=== PATIENT | male | born 1950 | race Caucasian/White ===

== ENCOUNTER 2017-12-05 07:08 | Inpatient (IN) ==
[2017-12-05] MEDS ORDERED: tiZANidine 4 MG TABLET PO PRN (15:18)
[2017-12-05] MEDS ORDERED: NITROGLYCERIN SL 0.4 MG TABLET SL PRN (15:18)
[2017-12-05] MEDS ORDERED: DEXTROSE 50% 25 GM/50 ML VIAL IV PRN (15:21)
[2017-12-05] MEDS ORDERED: GLUCAGON 1 MG VIAL IM PRN (15:21)
[2017-12-05] MEDS ORDERED: SODIUM CHLORIDE 0.9% 1,000 ML IV SCH (15:30)
[2017-12-05 15:53] LABS: Basophils # 0.1 10*3/uL (0.0-0.2); Basophils % 0.9 % (0.0-0.8); Eosinophils # 0.3 10*3/uL (0.0-0.87); Eosinophils % 2.6 % (0.00-10.9); Hematocrit 43.2 VOL% (42.0-52.0); Hemoglobin 13.6 GM/DL (14.0-18.0); Immature Granulocytes % 0.3 %; Immature Granulocytes Absolute 0.03 #; Lymphocytes # 3.1 10*3/uL (1.4-4.0); Lymphocytes % 32.5 % (21.2-54.2); Mean Corpuscular HGB Conc 31.5 GM/DL (32-36); Mean Corpuscular Hemoglobin 27 PG (27-34); Mean Corpuscular Volume 86.9 FL (87-102); Mean Platelet Volume 11.2 FL (9.6-12.0); Monocytes # 0.9 10*3/uL (0.11-0.8); Monocytes % 9.2 % (1.7-12.7); Neutrophils # 5.2 10*3/uL (1.4-7.4); Neutrophils % 54.5 % (38.7-73.9); Platelet Count 216 T/CUMM (130-400); Red Blood Count 4.97 MC/CUMM (3.8-5.5); White Blood Count 9.5 T/CUMM (4-12)
[2017-12-05] MEDS: CHLORHEXIDINE 4% SOLN 118 ML BOTTLE TOP SCH ×2 (16:22→21:50)
[2017-12-05] MEDS ORDERED: DIAZEPAM 5 MG TABLET PO ONE (16:25)
[2017-12-05 16:26] LABS: Albumin 3.5 G/DL (3.4-5.0); Bilirubin,Total 0.4 MG/DL (0.2-1.0); Calcium 8.6 MG/DL (8.5-10.1); Osmolality,Calculated 282.3 MOS/KG (273-304); Potassium 3.9 MMOL/L (3.5-5.1)
[2017-12-05] MEDS ORDERED: PANTOPRAZOLE 40 MG VIAL IV ONE (16:27)
[2017-12-05 18:33] LABS: ABG Base Excess -0.6 MMOL/L (-2.5-2.5); ABG HCO3 23.9 MMOL/L (20-26); ABG Oxygen Saturation 97.5 % (95-100); ABG PCO2 40.1 MM HG (35-48); ABG PH 7.389 (7.35-7.45); ABG PO2 90.9 MM HG (80-95); ABG TCO2 21.1 MMOL/L (23-27)
[2017-12-05] MEDS ORDERED: cloNIDine 0.1 MG TABLET PO SCH (21:00)
[2017-12-05] MEDS ORDERED: ATORVASTATIN 40 MG TABLET PO SCH (21:00)
[2017-12-05] MEDS ORDERED: NEBIVOLOL 5 MG TABLET PO SCH (21:00)
[2017-12-05] MEDS ORDERED: GABAPENTIN 100 MG CAPSULE PO SCH (21:00)
[2017-12-05] MEDS: CILOSTAZOL 50 MG TABLET PO SCH (21:51)
[2017-12-05] MEDS: CHLORHEXIDINE 0.12% ORAL RINSE 60 ML BOTTLE SWISH/SPIT SCH (21:51)
[2017-12-06] MEDS ORDERED: CEFUROXIME INJ 1,500 MG in SYRINGE 1 EACH IV ONE ×2 (05:00→06:00)
[2017-12-06] MEDS ORDERED: PAPAVERINE 60 MG/2 ML VIAL ONE (05:22)
[2017-12-06] MEDS ORDERED: VANCOMYCIN 1,000 MG VIAL ONE (05:23)
[2017-12-06] MEDS ORDERED: SUFentanil 250 MCG/5 ML AMP ONE (05:38)
[2017-12-06] MEDS ORDERED: PHENYLEPHRINE DRIP 20 MG/250 ML PREMIX IV ONE ×2 (05:38→11:08)
[2017-12-06] MEDS ORDERED: CALCIUM CHLORIDE 1,000 MG/10 ML VIAL IV ONE (05:38)
[2017-12-06] MEDS ORDERED: HEPARIN/NACL 0.9% 2 UNITS/ML 1,000 ML IV ONE (05:38)
[2017-12-06] MEDS ORDERED: ePHEDrine 50 MG/ML AMP ONE (05:39)
[2017-12-06] MEDS ORDERED: VECURONIUM 10 MG VIAL IV ONE ×2 (05:39→12:24)
[2017-12-06] MEDS ORDERED: MIDAZOLAM 10 MG/2 ML VIAL ONE (05:39)
[2017-12-06] MEDS ORDERED: NITROGLYCERIN DRIP 50 MG/250 ML BOTTLE IV ONE (05:39)
[2017-12-06] MEDS ORDERED: TRANEXAMIC ACID 1,000 MG/10 ML VIAL IV ONE (05:39)
[2017-12-06] MEDS ORDERED: DIAZEPAM 5 MG TABLET PO ONE (06:00)
[2017-12-06] MEDS ORDERED: SODIUM CHLORIDE 0.9% 1,000 ML IV SCH (06:00)
[2017-12-06] MEDS ORDERED: PANTOPRAZOLE 40 MG VIAL IV ONE (06:00)
[2017-12-06 07:35] LABS: ABG Base Excess 2.4 MMOL/L (-2.5-2.5); ABG HCO3 26.6 MMOL/L (20-26); ABG PCO2 36.8 MM HG (35-48); ABG PH 7.458 (7.35-7.45); ABG TCO2 22.9 MMOL/L (23-27); Glucose Heart Surgery 163 MG/DL (74-106); Hematocrit Heart Surgery 37.3 PERCENT (42-52); Hemoglobin Heart Surgery 12.1 G/DL (14.0-18.0); Ionized Calcium Arterial 1.13 MMOL/L (1.21-1.46); PCO2 Patient Temp Arterial 36.8 MMHG; PH Patient Temp Arterial 7.458; Patient Temperature 37 CELCIUS; Potassium Heart/CVR 3.8 MMOL/L (3.5-5.1); Sodium Heart/CVR 136 MMOL/L (135-145)
[2017-12-06 07:40] LABS: Apearance,Urine CLEAR (Clear); Bilirubin,Urine Negative (Negative); Blood, Urine Small mg/dL (Negative); Glucose,Urine (UA) >=500 mg/dL (Negative); Ketones,Urine Negative (Negative); Mucus,Urine Occasional /LPF (Occasional); Nitrite,Urine Negative (Negative); Protein,Urine Negative; RBC,Urine 3 /HPF (0-4); Urine Color Yellow (Yellow); Urine Specific Gravity 1.015 (1.001-1.035); Urine Urobilinogen < 2.0 EU/DL (0.2-1.0); WBC,Urine 1 /HPF (0-6)
[2017-12-06] MEDS ORDERED: MINERAL OIL (TOPICAL) 25 ML BOTTLE TOP ONE (07:58)
[2017-12-06] MEDS ORDERED: SODIUM BICARBONATE 50 MEQ/50 ML SYRINGE IV ONE ×2 (08:56→11:09)
[2017-12-06] MEDS ORDERED: PHENYLEPHRINE DRIP 40 MG/250 ML PREMIX IV ONE (08:57)
[2017-12-06] MEDS ORDERED: NITROPRUSSIDE 50 MG/2 ML VIAL ONE (08:57)
[2017-12-06] MEDS ORDERED: ALBUMIN 5% 12.5 GM/250 ML VIAL IV ONE (08:58)
[2017-12-06] MEDS ORDERED: POTASSIUM CHLORIDE RIDER 100 ML IV ONE (08:58)
[2017-12-06] MEDS ORDERED: CALCIUM CHLORIDE 1,000 MG/10 ML SYRINGE IV ONE (08:58)
[2017-12-06] MEDS ORDERED: hydroCHLOROthiazide 25 MG TABLET PO SCH (09:00)
[2017-12-06] MEDS ORDERED: OLMESARTAN 20 MG TABLET PO SCH (09:00)
[2017-12-06] MEDS ORDERED: MOMETASONE 50 MCG NASAL SPRAY 17 GM BOTTLE BOTH NARES SCH (09:00)
[2017-12-06] MEDS ORDERED: amLODIPine 10 MG TABLET PO SCH (09:00)
[2017-12-06] MEDS ORDERED: ASPIRIN EC 81 MG TABLET PO SCH (09:00)
[2017-12-06] MEDS ORDERED: glipiZIDE 5 MG TABLET PO SCH (09:00)
[2017-12-06 09:46] LABS: Hematocrit Heart Surgery 25.7 PERCENT (42-52); Hemoglobin Heart Surgery 8.3 G/DL (14.0-18.0); PCO2 Patient Temp Venous 38.8 MM HG; PH Patient Temp Venous 7.435; PO2 Patient Temp Venous 37.9 MM HG; Potassium Heart/CVR 4.6 MMOL/L (3.5-5.1); VBG Base Excess 1.9 MEQ/L (0-4); VBG HCO3 25.9 MEQ/L (24-28); VBG Oxygen Saturation 81.5 %; VBG PCO2 42.7 MMHG (41-51); VBG PH 7.406; VBG PO2 43.5 MMHG (17-40)
[2017-12-06] MEDS: CHLORHEXIDINE 4% SOLN 118 ML BOTTLE TOP SCH (10:11)
[2017-12-06] MEDS: CILOSTAZOL 50 MG TABLET PO SCH (10:11)
[2017-12-06] MEDS: CHLORHEXIDINE 0.12% ORAL RINSE 60 ML BOTTLE SWISH/SPIT SCH ×2 (10:11→20:31)
[2017-12-06 10:26] LABS: Hemoglobin Heart Surgery 9.6 G/DL (14.0-18.0); PH Patient Temp Venous 7.481; PO2 Patient Temp Venous 40.7 MM HG; Potassium Heart/CVR 4.2 MMOL/L (3.5-5.1); VBG Base Excess -0.6 MEQ/L (0-4); VBG HCO3 23.3 MEQ/L (24-28); VBG PCO2 35.4 MMHG (41-51); VBG PH 7.436; VBG PO2 50.2 MMHG (17-40)
[2017-12-06 10:45] LABS: Hematocrit Heart Surgery 29.4 PERCENT (42-52); Hemoglobin Heart Surgery 9.5 G/DL (14.0-18.0); PCO2 Patient Temp Venous 38.1 MM HG; PH Patient Temp Venous 7.436; PO2 Patient Temp Venous 37.3 MM HG; Potassium Heart/CVR 4.5 MMOL/L (3.5-5.1); VBG Base Excess 1.5 MEQ/L (0-4); VBG HCO3 25.4 MEQ/L (24-28); VBG Oxygen Saturation 74.6 %; VBG PCO2 38.1 MMHG (41-51); VBG PH 7.436; VBG PO2 37.3 MMHG (17-40)
[2017-12-06] MEDS ORDERED: DEXTROSE 5% KCL 20 MEQ 20 MEQ/1,000 ML BAG IV ONE (11:08)
[2017-12-06] MEDS ORDERED: ALBUMIN 25% 25 GM/100 ML VIAL IV ONE (11:09)
[2017-12-06] MEDS ORDERED: PROTAMINE SULFATE 250 MG/25 ML VIAL IV ONE (11:09)
[2017-12-06] MEDS ORDERED: methylPREDNISolone SOD SUC 1,000 MG/8 ML VIAL ONE (11:09)
[2017-12-06] MEDS ORDERED: MAGNESIUM SULFATE 1 GM/2 ML VIAL ONE (11:09)
[2017-12-06] MEDS ORDERED: FUROSEMIDE 20 MG/2 ML VIAL ONE (11:09)
[2017-12-06] MEDS ORDERED: MANNITOL 12.5 GM/50 ML VIAL IV ONE (11:09)
[2017-12-06] MEDS ORDERED: HEPARIN 10,000 UNIT/10 ML VIAL ONE (11:09)
[2017-12-06] MEDS ORDERED: PROTAMINE SULFATE 50 MG/5 ML VIAL IV ONE (11:10)
[2017-12-06 11:18] LABS: ABG Base Excess -0.1 MMOL/L (-2.5-2.5); ABG HCO3 24.3 MMOL/L (20-26); ABG Oxygen Saturation 99.5 % (95-100); ABG PCO2 38.3 MM HG (35-48); ABG PH 7.411 (7.35-7.45); ABG TCO2 22.1 MMOL/L (23-27); Glucose Heart Surgery 287 MG/DL (74-106); Hematocrit Heart Surgery 30.3 PERCENT (42-52); Hemoglobin Heart Surgery 9.8 G/DL (14.0-18.0); Ionized Calcium Arterial 1.21 MMOL/L (1.21-1.46); PCO2 Patient Temp Arterial 38.3 MMHG; PH Patient Temp Arterial 7.411; Patient Temperature 37 CELCIUS; Potassium Heart/CVR 4.5 MMOL/L (3.5-5.1); Sodium Heart/CVR 133 MMOL/L (135-145)
[2017-12-06] MEDS ORDERED: SEVOFLURANE 1 UNIT/15 MINUTE INH ONE (12:24)
[2017-12-06] MEDS ORDERED: LACTATED RINGERS 1,000 ML IV ONE (12:24)
[2017-12-06] MEDS ORDERED: SODIUM CHLORIDE 0.9% 1,000 ML IV ONE (12:24)
[2017-12-06] MEDS ORDERED: INSULIN REGULAR 100 UNIT/ML IV ONE (12:27)
[2017-12-06] MEDS ORDERED: DEXTROSE 50% 25 GM/50 ML VIAL IV PRN ×2 (12:27)
[2017-12-06] MEDS ORDERED: ONDANSETRON 4 MG/2 ML VIAL IV PRN (12:27)
[2017-12-06] MEDS ORDERED: MORPHINE 10 MG/1 ML VIAL IV PRN (12:27)
[2017-12-06] MEDS ORDERED: LACTATED RINGERS 250 ML IV PRN (12:27)
[2017-12-06] MEDS ORDERED: POTASSIUM CHLORIDE RIDER 10 MEQ in PREMIX 1 EACH IV PRN (12:27)
[2017-12-06] MEDS ORDERED: ACETAMINOPHEN 650 MG SUPP RECTAL PRN (12:27)
[2017-12-06] MEDS ORDERED: NITROPRUSSIDE 100 MG in DEXTROSE 5% 250 ML IV PRN (12:27)
[2017-12-06] MEDS ORDERED: CALCIUM CHLORIDE 1,000 MG/10 ML SYRINGE IV PRN (12:27)
[2017-12-06] MEDS ORDERED: MIDAZOLAM 10 MG/2 ML VIAL IV PRN (12:27)
[2017-12-06] MEDS ORDERED: MAGNESIUM SULF RIDER 4 GM in PREMIX 1 EACH IV PRN (12:27)
[2017-12-06] MEDS ORDERED: PHENYLEPHRINE DRIP 40 MG/250 ML PREMIX IV PRN (12:27)
[2017-12-06] MEDS ORDERED: INSULIN REGULAR 100 UNIT/ML IV PRN (12:27)
[2017-12-06] MEDS ORDERED: MAGNESIUM SULF RIDER 2 GM in PREMIX 1 EACH IV PRN (12:27)
[2017-12-06] MEDS ORDERED: VECURONIUM 10 MG VIAL IV PRN ×2 (12:27)
[2017-12-06] MEDS: LACTATED RINGERS 1,000 ML IV PRN ×3 (12:30→16:34)
[2017-12-06] MEDS ORDERED: KETOROLAC 30 MG/1 ML VIAL IV SCH (12:30)
[2017-12-06] MEDS ORDERED: SODIUM CHLORIDE 0.45% 1,000 ML IV SCH ×2 (12:30)
[2017-12-06 12:37] LABS: ABG Base Excess -0.3 MMOL/L (-2.5-2.5); ABG HCO3 24.1 MMOL/L (20-26); ABG Oxygen Saturation 97.3 % (95-100); ABG PCO2 40.5 MM HG (35-48); ABG PH 7.391 (7.35-7.45); ABG TCO2 21.3 MMOL/L (23-27); Glucose Heart Surgery 264 MG/DL (74-106); Hematocrit Heart Surgery 42.3 PERCENT (42-52); Hemoglobin Heart Surgery 13.8 G/DL (14.0-18.0)
[2017-12-06 12:39] LABS: Basophils # 0.1 10*3/uL (0.0-0.2); Basophils % 0.5 % (0.0-0.8); Eosinophils # 0.1 10*3/uL (0.0-0.87); Eosinophils % 0.7 % (0.00-10.9); Hematocrit 32.3 VOL% (42.0-52.0); Hemoglobin 10.4 GM/DL (14.0-18.0); Immature Granulocytes % 0.9 %; Immature Granulocytes Absolute 0.09 #; Lymphocytes # 1.1 10*3/uL (1.4-4.0); Lymphocytes % 11.4 % (21.2-54.2); Mean Corpuscular HGB Conc 32.2 GM/DL (32-36); Mean Corpuscular Hemoglobin 28 PG (27-34); Mean Corpuscular Volume 86.1 FL (87-102); Mean Platelet Volume 11.6 FL (9.6-12.0); Monocytes # 0.6 10*3/uL (0.11-0.8); Monocytes % 5.6 % (1.7-12.7); Neutrophils # 7.9 10*3/uL (1.4-7.4); Neutrophils % 80.9 % (38.7-73.9); Platelet Count 192 T/CUMM (130-400); Red Blood Count 3.75 MC/CUMM (3.8-5.5); White Blood Count 9.8 T/CUMM (4-12)
[2017-12-06 12:44] LABS: INR 1.1; PT Patient Result 11.9 SECS; Partial Thromboplastin Time 28.4 SECS (0-40)
[2017-12-06] MEDS: POTASSIUM CHLORIDE RIDER 20 MEQ in PREMIX 1 EACH IV PRN ×4 (12:45→18:26)
[2017-12-06] MEDS: INSULIN REGULAR DRIP 100 ML IV SCH (12:54)
[2017-12-06 13:24] LABS: Albumin 2.9 G/DL (3.4-5.0); Bilirubin,Total 0.9 MG/DL (0.2-1.0); Calcium 8.8 MG/DL (8.5-10.1); Osmolality,Calculated 285.7 MOS/KG (273-304); Potassium 4.2 MMOL/L (3.5-5.1); Total Protein 5.2 G/DL (6.4-8.3)
[2017-12-06 13:27] LABS: CKMB % 4.6 %
[2017-12-06 13:28] LABS: Troponin I Only 1.94 NG/ML (0.00-0.045)
[2017-12-06] MEDS: MIDAZOLAM 2 MG/2 ML VIAL IV PRN ×2 (13:54→16:05)
[2017-12-06] MEDS: ALBUMIN 5% 12.5 GM in PREMIX 1 EACH IV PRN ×2 (13:54→14:53)
[2017-12-06 15:21] LABS: ABG Base Excess -0.4 MMOL/L (-2.5-2.5); ABG HCO3 24.1 MMOL/L (20-26); ABG Oxygen Saturation 98.7 % (95-100); ABG PCO2 46.4 MM HG (35-48); ABG PH 7.348 (7.35-7.45); ABG TCO2 23.3 MMOL/L (23-27); Glucose Heart Surgery 206 MG/DL (74-106); Hematocrit Heart Surgery 30.5 PERCENT (42-52); Hemoglobin Heart Surgery 9.9 G/DL (14.0-18.0); Potassium Heart/CVR 3.8 MMOL/L (3.5-5.1)
[2017-12-06] MEDS: MORPHINE 2 MG/1 ML SYRINGE IV PRN ×2 (15:51→20:45)
[2017-12-06 16:34] LABS: ABG Base Excess -1.5 MMOL/L (-2.5-2.5); ABG HCO3 23.1 MMOL/L (20-26); ABG Oxygen Saturation 98.1 % (95-100); ABG PCO2 45.5 MM HG (35-48); ABG PH 7.338 (7.35-7.45); ABG TCO2 22.4 MMOL/L (23-27); Glucose Heart Surgery 181 MG/DL (74-106); Hematocrit Heart Surgery 30.6 PERCENT (42-52); Hemoglobin Heart Surgery 9.9 G/DL (14.0-18.0); Potassium Heart/CVR 4.4 MMOL/L (3.5-5.1)
[2017-12-06 18:04] LABS: ABG Oxygen Saturation 97.6 % (95-100); ABG PCO2 41.3 MM HG (35-48); ABG PH 7.382 (7.35-7.45); ABG PO2 107.5 MM HG (80-95); ABG TCO2 25.3 MMOL/L (23-27); Glucose Heart Surgery 144 MG/DL (74-106); Hemoglobin Heart Surgery 10.7 G/DL (14.0-18.0); Potassium Heart/CVR 4.3 MMOL/L (3.5-5.1)
[2017-12-06] MEDS: CEFUROXIME INJ 1,500 MG in SYRINGE 1 EACH IV SCH (19:54)
[2017-12-06 20:16] LABS: ABG Base Excess -0.4 MMOL/L (-2.5-2.5); ABG HCO3 24.1 MMOL/L (20-26); ABG Oxygen Saturation 97.6 % (95-100); ABG PCO2 46.9 MM HG (35-48); ABG PH 7.345 (7.35-7.45); ABG TCO2 23.4 MMOL/L (23-27); Glucose Heart Surgery 136 MG/DL (74-106); Hematocrit Heart Surgery 30.7 PERCENT (42-52); Hemoglobin Heart Surgery 9.9 G/DL (14.0-18.0)
[2017-12-06 21:03] LABS: CKMB % 2.3 %
[2017-12-06 21:08] LABS: Troponin I Only 2.4 NG/ML (0.00-0.045)
[2017-12-07] MEDS ORDERED: FUROSEMIDE 40 MG/4 ML VIAL IV ONE (00:04)
[2017-12-07] MEDS: LACTATED RINGERS 1,000 ML IV PRN (00:26)
[2017-12-07] MEDS: MORPHINE 2 MG/1 ML SYRINGE IV PRN (01:15)
[2017-12-07 03:39] LABS: ABG Base Excess -0.1 MMOL/L (-2.5-2.5); ABG HCO3 24.5 MMOL/L (20-26); ABG Oxygen Saturation 92.7 % (95-100); ABG PCO2 39.4 MM HG (35-48); ABG PH 7.411 (7.35-7.45); ABG PO2 68.9 MM HG (80-95); ABG TCO2 25.7 MMOL/L (23-27); Glucose Heart Surgery 174 MG/DL (74-106); Potassium Heart/CVR 4.3 MMOL/L (3.5-5.1)
[2017-12-07 03:44] LABS: Basophils % 0.1 % (0.0-0.8); Hematocrit 32.1 VOL% (42.0-52.0); Hemoglobin 10.4 GM/DL (14.0-18.0); Immature Granulocytes % 0.5 %; Immature Granulocytes Absolute 0.08 #; Lymphocytes # 0.7 10*3/uL (1.4-4.0); Lymphocytes % 4.6 % (21.2-54.2); Mean Corpuscular HGB Conc 32.4 GM/DL (32-36); Mean Corpuscular Hemoglobin 28 PG (27-34); Mean Corpuscular Volume 85.1 FL (87-102); Mean Platelet Volume 11.9 FL (9.6-12.0); Monocytes # 0.6 10*3/uL (0.11-0.8); Monocytes % 3.8 % (1.7-12.7); Neutrophils # 13.9 10*3/uL (1.4-7.4); Platelet Count 235 T/CUMM (130-400); Red Blood Count 3.77 MC/CUMM (3.8-5.5); White Blood Count 15.2 T/CUMM (4-12)
[2017-12-07] MEDS: POTASSIUM CHLORIDE RIDER 20 MEQ in PREMIX 1 EACH IV PRN (03:47)
[2017-12-07] MEDS: INSULIN REGULAR DRIP 100 ML IV SCH (03:52)
[2017-12-07 04:15] LABS: Alanine Aminotransferase 17 U/L (16-61); Albumin 3.5 G/DL (3.4-5.0); Alkaline Phosphatase 92 U/L (45-117); Aspartate Amino Transferase 59 U/L (0-37); Bilirubin,Direct < 0.100 MG/DL (0.0-0.20); Blood Urea Nitrogen 22 MG/DL (7-18); Calcium 9.1 MG/DL (8.5-10.1); Glucose 176 MG/DL (74-106); Osmolality,Calculated 281.7 MOS/KG (273-304); Potassium 4.9 MMOL/L (3.5-5.1); Sodium 138 MMOL/L (136-145); Total Protein 6.3 G/DL (6.4-8.3)
[2017-12-07 04:26] LABS: CKMB % 1.7 %
[2017-12-07 04:39] LABS: Band Neutrophils 21 % (0-10); Lymphocytes 9 % (20-55); Segmented Neutrophils 67 % (50-85); Total Cells Counted 100
[2017-12-07 04:59] LABS: Troponin I Only 3.34 NG/ML (0.00-0.045)
[2017-12-07] MEDS ORDERED: tiZANidine 4 MG TABLET PO PRN (06:38)
[2017-12-07] MEDS: amLODIPine 10 MG TABLET PO SCH (09:17)
[2017-12-07] MEDS: hydroCHLOROthiazide 25 MG TABLET PO SCH (09:17)
[2017-12-07] MEDS: OLMESARTAN 20 MG TABLET PO SCH (09:18)
[2017-12-07] MEDS: MOMETASONE 50 MCG NASAL SPRAY 17 GM BOTTLE BOTH NARES SCH (09:19)
[2017-12-07] MEDS: glipiZIDE 5 MG TABLET PO SCH (09:19)
[2017-12-07] MEDS: CEFUROXIME INJ 1,500 MG in SYRINGE 1 EACH IV SCH (09:20)
[2017-12-07] MEDS: ASPIRIN EC 81 MG TABLET PO SCH (09:21)
[2017-12-07] MEDS: CHLORHEXIDINE 0.12% ORAL RINSE 60 ML BOTTLE SWISH/SPIT SCH ×3 (09:45→23:45)
[2017-12-07] MEDS ORDERED: SODIUM CHLOR 0.45% KCL 20 MEQ 20 MEQ/1,000 ML BAG IV SCH (09:48)
[2017-12-07] MEDS ORDERED: ALUMINUM/MAGNES/SIMETH MAX STR 30 ML UDCUP PO PRN (09:48)
[2017-12-07] MEDS ORDERED: DEXTROSE 50% 25 GM/50 ML VIAL IV PRN ×2 (09:48)
[2017-12-07] MEDS ORDERED: MAGNESIUM SULF RIDER 2 GM in PREMIX 1 EACH IV PRN (09:48)
[2017-12-07] MEDS ORDERED: ONDANSETRON 4 MG/2 ML VIAL IV PRN (09:48)
[2017-12-07] MEDS ORDERED: MORPHINE 2 MG/1 ML SYRINGE IV PRN (09:48)
[2017-12-07] MEDS ORDERED: MAGNESIUM HYDROXIDE SUSP 30 ML UDCUP PO PRN (09:48)
[2017-12-07] MEDS ORDERED: POTASSIUM CHLORIDE 20 MEQ TABLET PO PRN (09:48)
[2017-12-07] MEDS ORDERED: ZALEPLON 5 MG CAPSULE PO PRN (09:48)
[2017-12-07] MEDS ORDERED: MAGNESIUM SULF RIDER 4 GM in PREMIX 1 EACH IV PRN (09:48)
[2017-12-07] MEDS ORDERED: GLUCAGON 1 MG VIAL IM PRN ×2 (09:48)
[2017-12-07] MEDS ORDERED: ACETAMINOPHEN 325 MG TABLET PO PRN (09:48)
[2017-12-07] MEDS: KETOROLAC 15 MG/1 ML VIAL IV SCH ×3 (13:00→23:45)
[2017-12-07] MEDS: DOCUSATE SODIUM 100 MG CAPSULE PO SCH (13:00)
[2017-12-07] MEDS: PANTOPRAZOLE 40 MG TABLET PO SCH (13:00)
[2017-12-07] MEDS: FERROUS SULFATE 325 MG TABLET PO SCH (13:00)
[2017-12-07] MEDS: INSULIN REGULAR 100 UNIT/ML SUBCUT SCH ×2 (16:42→23:46)
[2017-12-07] MEDS: cloNIDine 0.1 MG TABLET PO SCH (23:44)
[2017-12-07] MEDS: ATORVASTATIN 40 MG TABLET PO SCH (23:44)
[2017-12-07] MEDS: GABAPENTIN 100 MG CAPSULE PO SCH (23:44)
[2017-12-07] MEDS: NEBIVOLOL 5 MG TABLET PO SCH (23:44)
[2017-12-08] MEDS: INSULIN REGULAR 100 UNIT/ML SUBCUT SCH ×6 (03:08→20:50)
[2017-12-08] MEDS: KETOROLAC 15 MG/1 ML VIAL IV SCH (03:56)
[2017-12-08 04:47] LABS: Hematocrit 25.9 VOL% (42.0-52.0); Hemoglobin 8.4 GM/DL (14.0-18.0); Immature Granulocytes % 0.9 %; Immature Granulocytes Absolute 0.14 #; Lymphocytes # 0.8 10*3/uL (1.4-4.0); Lymphocytes % 4.9 % (21.2-54.2); Mean Corpuscular HGB Conc 32.4 GM/DL (32-36); Mean Corpuscular Hemoglobin 28 PG (27-34); Mean Corpuscular Volume 84.6 FL (87-102); Mean Platelet Volume 12.4 FL (9.6-12.0); Monocytes # 0.9 10*3/uL (0.11-0.8); Monocytes % 5.6 % (1.7-12.7); Neutrophils # 13.8 10*3/uL (1.4-7.4); Neutrophils % 88.6 % (38.7-73.9); Platelet Count 193 T/CUMM (130-400); Red Blood Count 3.06 MC/CUMM (3.8-5.5); Red Cell Distribution Width 15.1 % (9.3-17.3); White Blood Count 15.6 T/CUMM (4-12)
[2017-12-08 05:34] LABS: Alanine Aminotransferase 19 U/L (16-61); Albumin 2.9 G/DL (3.4-5.0); Alkaline Phosphatase 76 U/L (45-117); Aspartate Amino Transferase 35 U/L (0-37); Bilirubin,Direct < 0.100 MG/DL (0.0-0.20); Bilirubin,Indirect 0.3 MG/DL (0.0-1.0); Bilirubin,Total < 0.39 MG/DL (0.2-1.0); Blood Urea Nitrogen 41 MG/DL (7-18); Calcium 8.6 MG/DL (8.5-10.1); Total Protein 5.4 G/DL (6.4-8.3)
[2017-12-08 05:35] LABS: CKMB % 0.7 %; Glucose 221 MG/DL (74-106); Magnesium 2.3 MG/DL (1.8-2.4); Osmolality,Calculated 297.3 MOS/KG (273-304); Potassium 4.3 MMOL/L (3.5-5.1); Sodium 141 MMOL/L (136-145)
[2017-12-08] MEDS ORDERED: FUROSEMIDE 40 MG/4 ML VIAL IV ONE (06:00)
[2017-12-08 07:39] LABS: Lymphocytes 2 % (20-55); Segmented Neutrophils 96 % (50-85); Total Cells Counted 100
[2017-12-08 07:40] LABS: Hypochromasia 1+; Platelet Estimate Normal
[2017-12-08] MEDS: hydroCHLOROthiazide 25 MG TABLET PO SCH (09:24)
[2017-12-08] MEDS: OLMESARTAN 20 MG TABLET PO SCH (09:24)
[2017-12-08] MEDS: FERROUS SULFATE 325 MG TABLET PO SCH (09:24)
[2017-12-08] MEDS: amLODIPine 10 MG TABLET PO SCH (09:25)
[2017-12-08] MEDS: glipiZIDE 5 MG TABLET PO SCH (09:25)
[2017-12-08] MEDS: PANTOPRAZOLE 40 MG TABLET PO SCH (09:25)
[2017-12-08] MEDS: DOCUSATE SODIUM 100 MG CAPSULE PO SCH (09:25)
[2017-12-08] MEDS: ASPIRIN EC 81 MG TABLET PO SCH (09:26)
[2017-12-08] MEDS: CHLORHEXIDINE 0.12% ORAL RINSE 60 ML BOTTLE SWISH/SPIT SCH ×2 (09:27→20:54)
[2017-12-08] MEDS: oxyCODONE/ACETAMINOPHEN 5-325 MG TABLET PO PRN ×3 (10:34→22:39)
[2017-12-08] MEDS: MOMETASONE 50 MCG NASAL SPRAY 17 GM BOTTLE BOTH NARES SCH (11:09)
[2017-12-08] MEDS ORDERED: LACTULOSE 20 GM/30 ML UDCUP PO ONE (13:18)
[2017-12-08] MEDS: GABAPENTIN 100 MG CAPSULE PO SCH (20:50)
[2017-12-08] MEDS: ATORVASTATIN 40 MG TABLET PO SCH (20:50)
[2017-12-08] MEDS: cloNIDine 0.1 MG TABLET PO SCH (20:50)
[2017-12-08] MEDS: NEBIVOLOL 5 MG TABLET PO SCH (20:50)
[2017-12-09] MEDS: INSULIN REGULAR 100 UNIT/ML SUBCUT SCH ×6 (01:18→21:46)
[2017-12-09 03:17] LABS: Basophils % 0.1 % (0.0-0.8); Eosinophils % 0.1 % (0.00-10.9); Hematocrit 25.1 VOL% (42.0-52.0); Hemoglobin 7.8 GM/DL (14.0-18.0); Immature Granulocytes % 0.6 %; Immature Granulocytes Absolute 0.08 #; Lymphocytes # 1.8 10*3/uL (1.4-4.0); Lymphocytes % 13.1 % (21.2-54.2); Mean Corpuscular HGB Conc 31.1 GM/DL (32-36); Mean Corpuscular Hemoglobin 27 PG (27-34); Mean Corpuscular Volume 87.5 FL (87-102); Mean Platelet Volume 12.7 FL (9.6-12.0); Monocytes % 7.6 % (1.7-12.7); Neutrophils # 10.6 10*3/uL (1.4-7.4); Neutrophils % 78.5 % (38.7-73.9); Platelet Count 192 T/CUMM (130-400); Red Blood Count 2.87 MC/CUMM (3.8-5.5); Red Cell Distribution Width 15.3 % (9.3-17.3); White Blood Count 13.5 T/CUMM (4-12)
[2017-12-09 03:36] LABS: Alanine Aminotransferase 20 U/L (16-61); Albumin 2.7 G/DL (3.4-5.0); Alkaline Phosphatase 76 U/L (45-117); Aspartate Amino Transferase 25 U/L (0-37); Bilirubin,Direct < 0.100 MG/DL (0.0-0.20); Bilirubin,Indirect 0.3 MG/DL (0.0-1.0); Bilirubin,Total < 0.39 MG/DL (0.2-1.0); Blood Urea Nitrogen 50 MG/DL (7-18); Calcium 8.3 MG/DL (8.5-10.1); Glucose 210 MG/DL (74-106); Magnesium 2.5 MG/DL (1.8-2.4); Osmolality,Calculated 299.3 MOS/KG (273-304); Potassium 4.1 MMOL/L (3.5-5.1); Sodium 141 MMOL/L (136-145); Total Protein 5.2 G/DL (6.4-8.3)
[2017-12-09] MEDS: oxyCODONE/ACETAMINOPHEN 5-325 MG TABLET PO PRN ×3 (05:07→21:25)
[2017-12-09] MEDS: FERROUS SULFATE 325 MG TABLET PO SCH (09:25)
[2017-12-09] MEDS: PANTOPRAZOLE 40 MG TABLET PO SCH (09:25)
[2017-12-09] MEDS: hydroCHLOROthiazide 25 MG TABLET PO SCH (09:25)
[2017-12-09] MEDS: DOCUSATE SODIUM 100 MG CAPSULE PO SCH (09:25)
[2017-12-09] MEDS: amLODIPine 10 MG TABLET PO SCH (09:25)
[2017-12-09] MEDS: OLMESARTAN 20 MG TABLET PO SCH (09:25)
[2017-12-09] MEDS: glipiZIDE 5 MG TABLET PO SCH (09:25)
[2017-12-09] MEDS: ASPIRIN EC 81 MG TABLET PO SCH (09:25)
[2017-12-09] MEDS: CHLORHEXIDINE 0.12% ORAL RINSE 60 ML BOTTLE SWISH/SPIT SCH ×2 (09:26→21:46)
[2017-12-09] MEDS: MOMETASONE 50 MCG NASAL SPRAY 17 GM BOTTLE BOTH NARES SCH (09:26)
[2017-12-09] MEDS: NEBIVOLOL 5 MG TABLET PO SCH (21:24)
[2017-12-09] MEDS: cloNIDine 0.1 MG TABLET PO SCH (21:24)
[2017-12-09] MEDS: ATORVASTATIN 40 MG TABLET PO SCH (21:24)
[2017-12-09] MEDS: GABAPENTIN 100 MG CAPSULE PO SCH (21:24)
[2017-12-10] MEDS: INSULIN REGULAR 100 UNIT/ML SUBCUT SCH ×6 (01:23→21:13)
[2017-12-10] MEDS: hydroCHLOROthiazide 25 MG TABLET PO SCH (09:10)
[2017-12-10] MEDS: DOCUSATE SODIUM 100 MG CAPSULE PO SCH (09:10)
[2017-12-10] MEDS: amLODIPine 10 MG TABLET PO SCH (09:11)
[2017-12-10] MEDS: OLMESARTAN 20 MG TABLET PO SCH (09:11)
[2017-12-10] MEDS: PANTOPRAZOLE 40 MG TABLET PO SCH (09:11)
[2017-12-10] MEDS: FERROUS SULFATE 325 MG TABLET PO SCH (09:11)
[2017-12-10] MEDS: glipiZIDE 5 MG TABLET PO SCH (09:11)
[2017-12-10] MEDS: ASPIRIN EC 81 MG TABLET PO SCH (09:11)
[2017-12-10] MEDS: CHLORHEXIDINE 0.12% ORAL RINSE 60 ML BOTTLE SWISH/SPIT SCH ×2 (12:46→21:16)
[2017-12-10] MEDS: MOMETASONE 50 MCG NASAL SPRAY 17 GM BOTTLE BOTH NARES SCH (12:46)
[2017-12-10] MEDS: oxyCODONE/ACETAMINOPHEN 5-325 MG TABLET PO PRN ×3 (12:51→21:14)
[2017-12-10] MEDS: cloNIDine 0.1 MG TABLET PO SCH (21:14)
[2017-12-10] MEDS: ATORVASTATIN 40 MG TABLET PO SCH (21:14)
[2017-12-10] MEDS: GABAPENTIN 100 MG CAPSULE PO SCH (21:14)
[2017-12-10] MEDS: NEBIVOLOL 5 MG TABLET PO SCH (21:14)
[2017-12-11] MEDS: INSULIN REGULAR 100 UNIT/ML SUBCUT SCH ×4 (02:03→12:25)
[2017-12-11 05:30] LABS: Basophils % 0.3 % (0.0-0.8); Eosinophils # 0.5 10*3/uL (0.0-0.87); Eosinophils % 4.6 % (0.00-10.9); Hematocrit 27.3 VOL% (42.0-52.0); Lymphocytes % 30.6 % (21.2-54.2); Mean Corpuscular Hemoglobin 28 PG (27-34); Mean Corpuscular Volume 85.3 FL (87-102); Mean Platelet Volume 12.6 FL (9.6-12.0); Monocytes # 0.7 10*3/uL (0.11-0.8); Monocytes % 6.8 % (1.7-12.7); Neutrophils # 5.5 10*3/uL (1.4-7.4); Neutrophils % 56.7 % (38.7-73.9); Platelet Count 259 T/CUMM (130-400); Red Cell Distribution Width 14.6 % (9.3-17.3); White Blood Count 9.8 T/CUMM (4-12)
[2017-12-11 06:03] LABS: Alanine Aminotransferase 26 U/L (16-61); Albumin 2.7 G/DL (3.4-5.0); Alkaline Phosphatase 93 U/L (45-117); Aspartate Amino Transferase 17 U/L (0-37); Bilirubin,Direct < 0.100 MG/DL (0.0-0.20); Bilirubin,Indirect 0.5 MG/DL (0.0-1.0); Blood Urea Nitrogen 35 MG/DL (7-18); Calcium 8.6 MG/DL (8.5-10.1); Glucose 141 MG/DL (74-106); Magnesium 2.2 MG/DL (1.8-2.4); Osmolality,Calculated 288.4 MOS/KG (273-304); Potassium 4.1 MMOL/L (3.5-5.1); Sodium 140 MMOL/L (136-145); Total Protein 5.4 G/DL (6.4-8.3)
[2017-12-11 06:05] LABS: Troponin I Only 0.513 NG/ML (0.00-0.045)
[2017-12-11] MEDS: hydroCHLOROthiazide 25 MG TABLET PO SCH (09:55)
[2017-12-11] MEDS: FERROUS SULFATE 325 MG TABLET PO SCH (09:56)
[2017-12-11] MEDS: PANTOPRAZOLE 40 MG TABLET PO SCH (09:56)
[2017-12-11] MEDS: ASPIRIN EC 81 MG TABLET PO SCH (09:56)
[2017-12-11] MEDS: glipiZIDE 5 MG TABLET PO SCH (09:56)
[2017-12-11] MEDS: DOCUSATE SODIUM 100 MG CAPSULE PO SCH (09:56)
[2017-12-11] MEDS: amLODIPine 10 MG TABLET PO SCH (09:57)
[2017-12-11] MEDS: OLMESARTAN 20 MG TABLET PO SCH (09:57)
[2017-12-11 12:16] VITALS: BP 139/64
== END 2017-12-11 15:54 | disposition home or self-care (01) | DRG 236 ==
LOC: N.CC 14:09 → N.CVR 12-06 09:14 → N.ICU 12-07 11:20 → N.TELES 12-07 18:12